=== PATIENT | female | born 1985 | race Caucasian/White ===

== ENCOUNTER 2017-07-28 16:21 | Emergency (ER) | payer OTHER ==
--- NOTE | 2017-07-28 16:39 | ED Physician Documentation ---
Fall - HISTORIAN Historian: patient - HPI Stated Complaint: brought in by EMS Chief Complaint: Headache Onset: just prior to arrival Where: other (friends house) Context: other (no one is sure what happened she is a poor historian ) Associated Symptoms:: no loss of consciousness (this is not clear boyfriend who was there is not sure if she was awake b/c they asked her questions or if she was awake anyway ) Location of Pain/Injury: head, face (several scratches on right side of the face ). denies: neck, chest, abdomen, upper back, mid back, lower back, R shoulder, L shoulder, upper extremity, lower extremity, hip Injury to Right Extremity: none Injury to Left Extremity: none Further Comments: no - ROS CONST: denies: recent illness, fever, weakness, chills NEURO: denies: dizziness MS/SKIN/LYMPH: denies: weakness, numbness, neck pain, back pain, ankle swelling , leg swelling, rash EYES/ENT: denies: problems with vision, nasal drainage CVS/RESP: denies: chest pain, shortness of breath, palpitations GI/: denies: problems urinating, nausea, vomiting LNMP: 07/28/17 - PAST HX Past History: other (she is poor historian ) Allergies/Adverse Reactions: Allergies Allergy/AdvReac Type Severity Reaction Status Date / Time No Known Allergies Allergy Verified 07/28/17 17:51 Home Medications: Ambulatory Orders Medication Instructions Recorded Azithromycin [Zithromax] 250 mg PO DAILY #6 tablet 07/28/17 - SOCIAL HX Smoking History: non-smoker Alcohol Use: none Drug Use: none - FAMILY HX Family History: none - REVIEWED ASSESSMENTS Nursing Assessment Reviewed: Yes Vitals Reviewed: Yes ED Results Lab/Radiology - Radiology Radiology Impressions: Examination: CT head without contrast History: Fall Comparison exam: None available Technique: Noncontrast head CT protocol. Findings: Ventricles and sulci are appropriate for patient age. Cerebrocerebellar parenchyma demonstrates normal attenuation. No evidence for parenchymal hemorrhage. No evidence for mass or mass effect. No midline shift. No extra axial fluid collections. Partial visualization of the paranasal sinuses , mastoid air cells, orbits, skull and scalp without gross irregularity. Impression: No acute parenchymal process. No hemorrhage. Electronically signed on Jul 28, 2017 5:00:46 PM CHIEF CONSOLE OPERATOR by: Helder Herman Physical Exam - Physical Exam General Appearance: no acute distress, alert Head: non-tender, no swelling (she has several superfical scratches on the left side of her face ) Eye: RAFA, lids & conjunct. nml Resp/CVS: chest non-tender, breath sounds nml, no resp. distress, heart sounds nml Abdomen: soft, no organomegaly, normal bowel sounds, no distension, non-tender Neuro: oriented x3, CN's nml as tested, sensation nml, motor nml, mood/affect nml (difficult to evaluate due to mental capacity ), epidemiologist nml, reflexes nml, epidemiologist symmetrical Skin: color nml, no rash Joint: joints nml, nml ROM, Nml gait/weight bearing - [place] Coma Score Eyes Open: Spontaneous Speech: Oriented Motor: Obeys Commands Discharge Clincal Impression: Strep throat Prescriptions: Azithromycin [Zithromax] 250 mg PO DAILY #6 tablet Referrals: Primary Doctor,No [Primary Care Provider] - 2 Days Condition: Stable Disposition: 01 HOME, SELF-CARE Decision to Admit: NO Date of Decison to Admit: 07/28/17 Decision Time: 18:11
[2017-07-28 17:17] LABS: BASOPHILS % 0.5 (0.0-1.5); EOSINOPHILS % 2.4 % (0.0-6.8); MONOCYTES % 3.5 % (0.0-11.0)
[2017-07-28] MEDS ORDERED: IBUPROFEN 200 MG TABLET PO ONE (17:19)
[2017-07-28] MEDS: IBUPROFEN 400 MG TABLET PO ONE ×2 (17:27→17:57)
[2017-07-28 17:32] LABS: eGFR (African) > 60; eGFR (Non-African) > 60
--- NOTE | 2017-07-28 17:34 | Diagnostic Imaging Report ---
[facility] [id number] [facility] [address] [place], [place]. [address] Report Submission Date: Jul 28, 2017 5:00:46 PM TECHNICIAN INVENTORY SPECIALIST Patient Study Name: CARITO KOCH Date: Jul 28, 2017 4:45:34 PM TECHNICIAN INVENTORY SPECIALIST Modality Type: CT\SR Gender: F Description: CT BRAIN W/O CONTRAST : 89 Institution: [facility] Physician: HEAVEN GOLDBERG Examination: CT head without contrast History: Fall Comparison exam: None available Technique: Noncontrast head CT protocol. Findings: Ventricles and sulci are appropriate for patient age. Cerebrocerebellar parenchyma demonstrates normal attenuation. No evidence for parenchymal hemorrhage. No evidence for mass or mass effect. No midline shift. No extra axial fluid collections. Partial visualization of the paranasal sinuses , mastoid air cells, orbits, skull and scalp without gross irregularity. Impression: No acute parenchymal process. No hemorrhage. Electronically signed on Jul 28, 2017 5:00:46 PM TECHNICIAN INVENTORY SPECIALIST by: Helder BACA
[2017-07-28] MEDS: 0.9 % SODIUM CHLORIDE 1,000 ML IV ONE ×2 (17:36→17:38)
[2017-07-28 17:46] LABS: AMPHETAMINE NEGATIVE ng/mL (<1000); BARBITURATES NEGATIVE ng/mL (<300); CANNABINOIDS NON NEGATIVE ng/mL (< 50); COCAINE NEGATIVE ng/mL (<300); METHAMPHETAMINE NEGATIVE ng/mL (<1000); METHYLENEDIOXYMETHAMPHETAMINE NEGATIVE ng/mL (<500); OPIATES NEGATIVE ng/mL (<300)
[2017-07-28 17:55] LABS: APPEARANCE,URINE Clear (CLEAR); COLOR,URINE Yellow (YELLOW); OCCULT BLOOD,URINE 3+ (NEGATIVE); UROBILINOGEN URINE 0.2 Eu (0.2-1.0)
[2017-07-28 18:02] LABS: AMORPHOUS SEDIMENT,UR FEW (NEGATIVE)
[2017-07-28 18:42] VITALS: BP 118/66
== END 2017-07-28 18:39 | disposition home or self-care (01) ==
LOC: ED 16:21
DX: J02.0 Streptococcal pharyngitis (principal)
CPT/HCPCS: 36415; 70450; 80053; 80320; 80377; 81002; 81025; 84484; 85025; 85610; 87400; 87880; J7030; 96360; 99283; G0480; G0481; S1016